=== PATIENT | male | born 1975 | race Caucasian/White ===

== ENCOUNTER 2024-06-07 16:48 | Inpatient (IN) | payer MEDICAID ==
[~2024-06-07] VITALS: Ht 170.2 cm; Wt 63.5 kg
[2024-06-07 17:39] LABS: WHITE BLOOD COUNT (AUTO) 8.9 K/uL (4.3-11.0)
[2024-06-07 17:40] LABS: BASOPHILS # (AUTO) 0.1 K/uL (0.0-0.2); BASOPHILS % (AUTO) 0.7 % (0.0-2.0); EOSINOPHILS # (AUTO) 0.1 K/uL (0.0-0.7); EOSINOPHILS % (AUTO) 1.6 % (0.0-6.0); HEMATOCRIT 44 % (39-51); HEMOGLOBIN 15.5 g/dL (13.5-17.5); LYMPHOCYTES # (AUTO) 2.1 K/uL (0.8-4.8); LYMPHOCYTES % (AUTO) 23.2 % (20.0-44.0); MEAN CORPUSCULAR HEMOGLOBIN 31 PG (26.0-33.0); MEAN CORPUSCULAR HGB CONC 35 g/dl (31.0-36.0); MEAN CORPUSCULAR VOLUME 88 fL (80-96); MONOCYTES # (AUTO) 0.6 K/uL (0.1-1.30); MONOCYTES % (AUTO) 6.8 % (2.0-12.0); NEUTROPHILS % (AUTO) 67.7 % (43.0-81.0); PLATELET COUNT (AUTO) 258 K/uL (150-450); RED BLOOD CELL COUNT(AUTO) 5.06 MIL/uL (4.5-6.0); RED CELL DISTRIBUTION WIDTH 12.8 % (11.5-15.0)
[2024-06-07 17:59] LABS: ALBUMIN 3.4 g/dL (3.4-5.0); BILIRUBIN,TOTAL 0.6 mg/dL (0.2-1.0); CALCIUM, SERUM 8.6 mg/dL (8.5-10.1); CREATININE 0.8 mg/dL (0.6-1.3); POTASSIUM 4.6 mmol/L (3.5-5.1); TOTAL PROTEIN, SERUM 7.4 g/dL (6.4-8.2)
[2024-06-07] MEDS ORDERED: AMLODIPINE BESYLATE 5 MG TABLET ONE (18:23)
[2024-06-07] MEDS: AMLODIPINE BESYLATE 5 MG TABLET PO ONE (18:25)
[2024-06-07] MEDS ORDERED: AMLO5TAB4 PO (20:06)
[2024-06-07 20:53] LABS: ACETAMINOPHEN 0 ug/ml (10-30); ALCOHOL, BLOOD < 3 mg/dL (0-10); SALICYLATE 0.5 mg/dL (2.8-20.0)
[2024-06-07] MEDS ORDERED: MAGNESIUM HYDROXIDE 30 ML UDC PO PRN (22:30)
[2024-06-07] MEDS ORDERED: ZOLPIDEM TARTRATE 5 MG TABLET PO PRN (22:30)
[2024-06-07] MEDS ORDERED: ACETAMINOPHEN 325 MG TABLET PO PRN (22:30)
[2024-06-07] MEDS ORDERED: MAG HYDROX/AL HYDROX/SIMETH 30 ML UDC PO PRN (22:30)
[2024-06-07] MEDS ORDERED: LORAZEPAM 1 MG TABLET PO PRN (22:30)
[2024-06-07] MEDS ORDERED: Z GUARD REMEDY 4 OZ OINT TP PRN (22:30)
[2024-06-07] MEDS ORDERED: ONDANSETRON HCL/PF 4 MG/2 ML VIAL IVP PRN (22:30)
[2024-06-07] MEDS ORDERED: hydrALAZINE HCL IV 20 MG VIAL ONE (22:37)
[2024-06-07] MEDS: hydrALAZINE HCL IV 20 MG VIAL IV PRN (22:44)
[2024-06-07 23:48] VITALS: BP 180/100; TEMP 97.7; O2SAT 99
[2024-06-08] MEDS ORDERED: LABETALOL 20 MG/4 ML VIAL ONE (00:04)
[2024-06-08] MEDS: LABETALOL 20 MG/4 ML VIAL IV ONE (00:05)
[2024-06-08] MEDS: CLONIDINE HCL 0.1 MG TABLET PO PRN (00:16)
[2024-06-08 01:16] VITALS: BP 153/91; TEMP 97.3; O2SAT 98
[2024-06-08 02:32] VITALS: BP 110/70; TEMP 97.5; O2SAT 98
[2024-06-08 07:05] LABS: BASOPHILS % (AUTO) 0.6 % (0.0-2.0); EOSINOPHILS # (AUTO) 0.2 K/uL (0.0-0.7); EOSINOPHILS % (AUTO) 2.1 % (0.0-6.0); HEMATOCRIT 43 % (39-51); HEMOGLOBIN 15.1 g/dL (13.5-17.5); LYMPHOCYTES # (AUTO) 2.7 K/uL (0.8-4.8); LYMPHOCYTES % (AUTO) 32.9 % (20.0-44.0); MEAN CORPUSCULAR HEMOGLOBIN 31 PG (26.0-33.0); MEAN CORPUSCULAR HGB CONC 35 g/dl (31.0-36.0); MEAN CORPUSCULAR VOLUME 87 fL (80-96); MONOCYTES # (AUTO) 0.6 K/uL (0.1-1.30); MONOCYTES % (AUTO) 7.7 % (2.0-12.0); NEUTROPHILS # (AUTO) 4.7 K/uL (1.8-8.9); NEUTROPHILS % (AUTO) 56.7 % (43.0-81.0); PLATELET COUNT (AUTO) 265 K/uL (150-450); RED BLOOD CELL COUNT(AUTO) 4.97 MIL/uL (4.5-6.0); RED CELL DISTRIBUTION WIDTH 12.6 % (11.5-15.0); WHITE BLOOD COUNT (AUTO) 8.2 K/uL (4.3-11.0)
[2024-06-08] MEDS: PANTOPRAZOLE 40 MG TABLET.DR PO SCH (07:38)
[2024-06-08 07:44] LABS: CALCIUM, SERUM 8.8 mg/dL (8.5-10.1); CREATININE 0.6 mg/dL (0.6-1.3); MAGNESIUM 2.1 mg/dL (1.8-2.4); PHOSPHORUS 3.5 mg/dL (2.5-4.9); POTASSIUM 3.1 mmol/L (3.5-5.1)
[2024-06-08] MEDS: AMLODIPINE BESYLATE 5 MG TABLET PO SCH (08:32)
[2024-06-08] MEDS ORDERED: LORAZEPAM 0.5 MG TABLET PO PRN (09:00)
[2024-06-08 09:59] LABS: THYROID STIMULATING HORMONE 3.84 uIU/mL (0.358-3.74)
[2024-06-08] MEDS: POTASSIUM CHLORIDE 20 MEQ TAB.PRT.SR PO SCH (10:46)
[2024-06-08 21:00] VITALS: BP 161/96; TEMP 97.7; O2SAT 99
[2024-06-09 01:02] VITALS: BP 155/99; TEMP 97.8; O2SAT 99
[2024-06-09 11:31] VITALS: BP 162/104
[2024-06-09] MEDS: HYDROCHLOROTHIAZIDE 25 MG TABLET PO SCH (13:23)
[2024-06-09 20:00] VITALS: BP 140/87; TEMP 98.2; O2SAT 94
[2024-06-10 05:31] VITALS: BP 158/92; TEMP 98.2; O2SAT 99
[2024-06-10 08:00] VITALS: BP 136/98; TEMP 97.8; O2SAT 98
[2024-06-10 08:45] VITALS: BP 136/98
[2024-06-10] MEDS: AMLODIPINE BESYLATE 5 MG TABLET PO SCH (08:45)
[2024-06-10] MEDS ORDERED: Lorazepam PO (10:24)
[2024-06-10] MEDS ORDERED: THIA100T74 PO (10:24)
[2024-06-10] MEDS ORDERED: PANT40TA49 PO (10:24)
[2024-06-10] MEDS ORDERED: AMLO-212 PO (10:24)
[2024-06-10] MEDS ORDERED: HYDR25TA4 PO (10:24)
== END 2024-06-10 16:00 | disposition home or self-care (01) | DRG 199 ==
LOC: ER 17:30 → MED 21:59 → TELE 06-08 01:18 → MED 06-08 15:31
PROVIDERS: ADMIT Student in an Organized Health Care Education/Training Program; ATTEND Nurse Practitioner Acute Care
DX: I16.9 Hypertensive crisis, unspecified (principal); G92.8 Other toxic encephalopathy; F41.1 Generalized anxiety disorder; F17.210 Nicotine dependence, cigarettes, uncomplicated; G47.00 Insomnia, unspecified; F10.139 Alcohol abuse with withdrawal, unspecified; Y90.0 Blood alcohol level of less than 20 mg/100 ml; Z71.6 Tobacco abuse counseling; I10 Essential (primary) hypertension; Z91.199 Patient's noncompliance with other medical treatment and regimen due to unspecified reason
CPT/HCPCS: 36415; 70450-TC; 80048-TC; 80053-TC; 83735-TC; 84100-TC; 84439-TC; 84443-TC; 85025-TC; 93307-TC; 97112-TC; 97116-TC; 97530-TC; 98960; G0378; G0480; J0360; J3490